=== PATIENT | female | born 1950 | race Hispanic/Latino ===

== ENCOUNTER → 2018-12-13 | Outpatient (CLI) | payer OTHER ==
[~2018-12-13] MED LIST: LISI-617 PO; MULT-1258 PO; NAPR-1023 PO; PRAV20TA4 PO; SITA1TAB2 PO
== END | disposition home or self-care (01) ==
LOC: RAH 09:27
PROVIDERS: ATTEND Internal Medicine
DX: C50.311 Malignant neoplasm of lower-inner quadrant of right female breast (principal); Z85.3 Personal history of malignant neoplasm of breast
CPT/HCPCS: 77066

== ENCOUNTER → 2019-12-20 | Outpatient (CLI) | payer OTHER | END | disposition home or self-care (01) | LOC: RAH 13:46 | PROVIDERS: ATTEND Internal Medicine | DX: C50.311 Malignant neoplasm of lower-inner quadrant of right female breast (principal) | CPT/HCPCS: 77066 ==

== ENCOUNTER → 2021-11-26 | Outpatient (CLI) | payer OTHER ==
[~2021-11-26] MED LIST changes: -LISI-617 PO; +LISI5TAB21 PO
== END | disposition home or self-care (01) ==
LOC: RAH 07:20
PROVIDERS: ATTEND Internal Medicine
DX: R92.8 Other abnormal and inconclusive findings on diagnostic imaging of breast (principal); C50.311 Malignant neoplasm of lower-inner quadrant of right female breast; Z85.3 Personal history of malignant neoplasm of breast
CPT/HCPCS: 77066

== ENCOUNTER → 2022-11-26 | Outpatient (CLI) | payer OTHER | END | disposition home or self-care (01) | LOC: RAH 09:36 | PROVIDERS: ATTEND Internal Medicine | DX: C50.311 Malignant neoplasm of lower-inner quadrant of right female breast (principal); Z85.3 Personal history of malignant neoplasm of breast | CPT/HCPCS: 77066 ==

== ENCOUNTER → 2024-12-04 | Outpatient (CLI) | payer OTHER ==
[~2024-12-04] MED LIST changes: -NAPR-1023 PO; +NAPR-1194 PO; -PRAV20TA4 PO; +PRAV20TA59 PO
--- NOTE | 2024-12-04 11:02 | HMCIMG ---
DIGITAL lateral DIAGNOSTIC MAMMOGRAM Technique: The digital mammographic examination of both breasts in craniocaudal, mediolateral oblique views along with CAD was obtained. History: This is a 74 years year-old female 0, para0 Ab0 . Patient has history of right breast biopsy on 11/17/2016 which demonstrated being malignant patient underwent lumpectomy along with a lymph node dissection on 12/11/2016. Patient had right breast radiation therapy and this patient is an patient is on chemotherapy. Patient has no family history of breast cancer. Patient has no complaint Reference:Mammogram from 11/30/2023, 11/26/2022, 11/26/2021, 11/25/2020, 12/20/2019 are available for comparison.. Breast composition: Breast composition C: The breasts are heterogeneously dense, which may obscure small masses. Finding: The digital mammographic examination of both breasts in craniocaudal and mediolateral oblique view along with CAD demonstrates a moderately heterogeneously nodular dense breasts due to fibroglandular stromal elements. The right breast is smaller than the left breast due to prior lumpectomy of the right breast.. There is no evidence of any dendritic mass, cluster microcalcification or architectural distortion. The retromammary fat appears to be normal. IMPRESSION: Unchanged from prior mammography. NO RADIOGRAPHIC EVIDENCE OF MALIGNANT CHANGES. WE WOULD RECOMMEND ANNUAL FOLLOW UP WITH TOMOSYNTHESIS UNLESS OTHERWISE CLINICALLY INDICATED. FINAL ASSESSMENT: ACR: BI-RAD- 2. Benign: Also a negative assessment; finding(s) benign abnormalities. Management: Routine mammography screening. Likelihood of Cancer: Essentially 0% likelihood of malignancy. NOTE: IF A WORK-UP OF THIS PATIENT LEADS TO A BIOPSY, PLEASE FORWARD A COPY OF THE PATHOLOGY REPORT TO OUR OFFICE REQUIRED BY [employer] E[employer] DECEMBER 27, 1993. A NEGATIVE MAMMOGRAM SHOULD NOT PRECLUDE BIOPSY OF A CLINICALLY PALPABLE SUSPICIOUS MASS, 10% OF BREAST CANCERS ARE MAMMOGRAPHICALLY OCCULT. THIS MAMMOGRAPHY FACILITY IS FULLY ACCREDITED BY THE [employer]OD AND [employer]UG [employer]MIN[employer]ATION (FDA). THANK YOU FOR THIS REFERRAL.
== END | disposition home or self-care (01) ==
LOC: RAH 10:24
PROVIDERS: ATTEND Internal Medicine
DX: C50.311 Malignant neoplasm of lower-inner quadrant of right female breast (principal); R92.333 Mammographic heterogeneous density, bilateral breasts; Z85.3 Personal history of malignant neoplasm of breast
CPT/HCPCS: 77066